=== PATIENT | male | born 1995 | race Caucasian/White ===

== ENCOUNTER 2018-04-28 20:12 | Emergency (ER) | payer OTHER ==
[~2018-04-28] VITALS: Ht 177.8 cm; Wt 78.0 kg
[2018-04-28 20:55] VITALS: BP 140/81
[2018-04-28] MEDS ORDERED: OXYcodone/APAP 5/325MG TABLET ONE (20:56)
[2018-04-28] MEDS ORDERED: OXYcodone/APAP 5/325MG TABLET PO ONE (21:00)
--- NOTE | 2018-04-28 21:17 | NUR ---
PT HERE HERE FOR RIGHT KNEE INJURY. SMALL DEFORMITY AND SWELLING PRESENT.
[2018-04-28] MEDS ORDERED: LORazepam 1MG TABLET ONE (21:19)
--- NOTE | 2018-04-28 21:25 | NUR ---
PT MEDICATED FOR PAIN PRIOR TO SPLINT APPLICATION.
[2018-04-28] MEDS ORDERED: LORazepam 1MG TABLET PO ONE (21:30)
--- NOTE | 2018-04-28 21:31 | NUR ---
KNEE IMMOB. REMOVED PER . REPLACED WITH AN ADDISON WRAP PER . PATIENT HAS CRUTCHES AT HOME.
--- NOTE | 2018-04-28 21:35 | NUR ---
Patient/Caregiver given discharge instructions and they have confirmed that they understand the instructions. Patient ambulatory with steady gait.
== END 2018-04-28 22:02 | disposition home or self-care (01) ==
LOC: ED 21:00
DX: S83.411A Sprain of medial collateral ligament of right knee, initial encounter (principal); S83.421A Sprain of lateral collateral ligament of right knee, initial encounter; X58.XXXA Exposure to other specified factors, initial encounter; Y93.89 Activity, other specified; Y92.89 Other specified places as the place of occurrence of the external cause; Y99.8 Other external cause status
CPT/HCPCS: 29505; 99283

== ENCOUNTER → 2018-04-29 | Outpatient (CLI) | payer OTHER | END | disposition home or self-care (01) | LOC: CFH 14:34 | PROVIDERS: ATTEND Physician Assistant Surgical | DX: S83.211A Bucket-handle tear of medial meniscus, current injury, right knee, initial encounter (principal); S83.8X1A Sprain of other specified parts of right knee, initial encounter; X58.XXXA Exposure to other specified factors, initial encounter; Y93.89 Activity, other specified; Y92.89 Other specified places as the place of occurrence of the external cause; Y99.8 Other external cause status ==